=== PATIENT | female | born 1985 ===

== ENCOUNTER 2018-01-24 18:48 | Emergency (ER) | payer MEDICAID ==
[2018-01-24 19:30] VITALS: BMI 32.5
[2018-01-24 19:34] VITALS: RESP 18; O2SAT 99
--- NOTE | 2018-01-24 20:02 | ED PDOC ---
Arrival/HPI - General Chief Complaint: Back Pain Time Seen by Provider: 01/24/18 19:52 Historian: Patient - History of Present Illness Narrative History of Present Illness (Text): 01/24/18 19:48 Slime Goldman is a 32 year old female, whose past medical history includes kidney stones, who presents to the ED complaining of dysuria since earlier today. Patient reports associated right flank pain radiating to lower abdomen. Patient notes symptoms are similar in quality to previous episode of renal colic 3 years ago. Patient denies any fever, chills, nausea, vomiting, diarrhea, headache, dizziness, or any other complaints. Symptom Onset: Gradual Symptom Course: Unchanged Activities at Onset: Light Context: Home Past Medical History - Provider Review Nursing Documentation Reviewed: Yes - Infectious Disease Hx of Infectious Diseases: None - Renal Hx Kidney Stones: Yes - Musculoskeletal/Rheumatological Hx Arthritis: Yes - Gastrointestinal Hx Gastritis: Yes - Psychiatric Hx Depression: No Hx Substance Use: No - Surgical History Hx Cholecystectomy: Yes - Anesthesia Hx Anesthesia Reactions: No Hx Malignant Hyperthermia: No - Suicidal Assessment Feels Threatened In Home Enviroment: No Family/Social History - Physician Review Nursing Documentation Reviewed: Yes Family/Social History: Unknown Family HX Smoking Status: Never Smoked Hx Alcohol Use: No Hx Substance Use: No Hx Substance Use Treatment: No Allergies/Home Meds Allergies/Adverse Reactions: Allergies No Known Allergies Allergy (Verified 02/26/12 21:22) Review of Systems - Physician Review All systems were reviewed & negative as marked: Yes - Review of Systems Constitutional: Normal. absent: Fevers Eyes: Normal ENT: Normal Respiratory: Normal. absent: SOB, Cough Cardiovascular: Normal. absent: Chest Pain Gastrointestinal: Abdominal Pain. absent: Diarrhea, Nausea, Vomiting Genitourinary Female: Dysuria. absent: Frequency, Hematuria Musculoskeletal: Back Pain. absent: Neck Pain Skin: Normal. absent: Rash Neurological: Normal. absent: Headache, Dizziness Endocrine: Normal Hemo/Lymphatic: Normal Psychiatric: Normal Physical Exam Vital Signs Reviewed: Yes Vital Signs Temp Pulse Resp BP Pulse Ox 01/24/18 18:48 99.2 F 84 18 110/69 99 Temperature: Afebrile Blood Pressure: Normal Pulse: Regular Respiratory Rate: Normal Appearance: Positive for: Well-Appearing, Non-Toxic, Comfortable Pain Distress: None Mental Status: Positive for: Alert and Oriented X 3 - Systems Exam Head: Present: Atraumatic, Normocephalic Pupils: Present: PERRL Extroacular Muscles: Present: EOMI Conjunctiva: Present: Normal Mouth: Present: Moist Mucous Membranes Neck: Present: Normal Range of Motion Respiratory/Chest: Present: Clear to Auscultation, Good Air Exchange. No: Respiratory Distress, Accessory Muscle Use Cardiovascular: Present: Regular Rate and Rhythm, Normal S1, S2. No: Murmurs Abdomen: No: Tenderness, Distention, Peritoneal Signs Back: Present: Normal Inspection Upper Extremity: Present: Normal Inspection. No: Cyanosis, Edema Lower Extremity: Present: Normal Inspection. No: Edema Neurological: Present: GCS=15, CN II-XII Intact, Speech Normal Skin: Present: Warm, Dry, Normal Color. No: Rashes Psychiatric: Present: Alert, Oriented x 3, Normal Insight, Normal Concentration Medical Decision Making ED Course and Treatment: 01/24/18 19:48 Impression: 32 year old female c/o dysuria and left flank pain radiating to lower abdomen since earlier today. Plan: -- CT Abdomen and Pelvis w/o contrast -- US Renal -- Labs -- UA, urine cultures -- IV fluids -- Toradol -- Reassess and disposition Prior Visits: Notes and results from previous visits were reviewed. Progress Notes: 01/24/18 22:01 US Renal Impression: Right hydronephrosis. Consider follow-up with CT. Electronically signed on Jan 24, 2018 21:16:19 EDT by: Blake Coffey M.D, 01/24/18 23:36 CT Abdomen and Pelvis Impression: 1. s/p cholecystectomy 2. 2mm calculus is noted at the right UVJ producing mild hydroureteronephrosis. Electronically signed on Jan 24, 2018 23:22:42 EDT by: Blake Coffey M.D. On reassessment, pt is awake, alert, and in no acute distress. Discussed results and plan with patient. Patient understands results and is agreeable with plan. All questions answered. - Lab Interpretations I have reviewed the lab results: Yes - RAD Interpretation Pattern Drafter: Radiologist - Scribe Statement The provider has reviewed the documentation as recorded by the Scribe Candice Sheets All medical record entries made by the Scribe were at my direction and personally dictated by me. I have reviewed the chart and agree that the record accurately reflects my personal performance of the history, physical exam, medical decision making, and the department course for this patient. I have also personally directed, reviewed, and agree with the discharge instructions and disposition. Disposition/Present on Arrival - Present on Arrival Any Indicators Present on Arrival: No History of DVT/PE: No History of Uncontrolled Diabetes: No Urinary Catheter: No History of Decub. Ulcer: No History Surgical Site Infection Following: None - Disposition Have Diagnosis and Disposition been Completed?: Yes Diagnosis: Renal colic Disposition: HOME/ ROUTINE Disposition Time: 00:27 Patient Plan: Discharge Condition: GOOD Discharge Instructions (ExitCare): Renal Colic (DC) Additional Instructions: Drink plenty of liquids/medication as prescribed/follow up with your doctor Prescriptions: Naproxen [Naprosyn] 500 mg PO BID PRN #12 tab PRN Reason: Pain Referrals: Chuck Downs MD [Primary Care Provider] - Follow up with primary John Solorzano MD [Staff Provider] - Follow up with primary Forms: [employer] ([place])
[2018-01-24] MEDS ORDERED: Sodium Chloride 0.9% 1,000 ML IV STA (20:07)
[2018-01-24 20:09] LABS: URINE BILIRUBIN NEGATIVE (NEGATIVE); URINE BLOOD LARGE (NEGATIVE); URINE GLUCOSE (UA) NEGATIVE (NEGATIVE); URINE LEUKOCYTE ESTERASE NEGATIVE Leu/uL (NEGATIVE); URINE PROTEIN 100 mg/dL (<30 mg/dL)
[2018-01-24 20:10] LABS: URINE COLOR LIGHT YELLOW (YELLOW)
[2018-01-24 20:11] LABS: URINE APPEARANCE CLEAR (CLEAR)
[2018-01-24 20:23] LABS: URINE BACTERIA NEG (NEG); URINE WBC NEGATIVE /hpf (0-6)
[2018-01-24 21:33] LABS: HEMOGLOBIN 12.9 g/dL (12.0-16.0); MEAN CELL VOLUME 86.7 fl (80.0-105.0); MEAN CORPUSCULAR HEMOGLOBIN 28.6 pg (25.0-35.0); RBC 4.51 10^6/uL (3.5-6.1); RED CELL DISTRIBUTION WIDTH 13.3 % (11.5-14.5)
[2018-01-24 21:40] LABS: ALB/GLOB RATIO 1.4 (1.1-1.8); ALBUMIN 4.3 g/dL (3.0-4.8); ALT/SGPT 24 U/L (7-56); AST/SGOT 20 U/L (14-36); BLOOD UREA NITROGEN 13 mg/dL (7-21); CALCIUM 9.3 mg/dL (8.4-10.5); GFR NON-AFRICAN AMERICAN > 60
[2018-01-25 00:43] VITALS: BP 115/75; PULSE 86; TEMP 98
--- NOTE | 2018-01-25 08:35 | CT ---
Date of service: 01/24/2018 PROCEDURE: CT Abdomen and Pelvis without intravenous contrast HISTORY: Right flank pain COMPARISON: None. TECHNIQUE: Unenhanced. Neither IV nor oral contrast administered Radiation dose: Total exam DLP = 631.79 mGy-cm. This CT exam was performed using one or more of the following dose reduction techniques: Automated exposure control, adjustment of the mA and/or kV according to patient size, and/or use of iterative reconstruction technique. FINDINGS: LOWER THORAX: Unremarkable. LIVER: Unremarkable. No gross lesion or ductal dilatation. GALLBLADDER AND BILE DUCTS: Status post cholecystectomy. No abnormality is seen in the gallbladder fossa. PANCREAS: Unremarkable. No gross lesion or ductal dilatation. SPLEEN: Unremarkable. ADRENALS: Unremarkable. No mass. KIDNEYS AND URETERS: Unilateral, right obstructive uropathy related to 3 mm calculus within 1.5 cm of the right ureterovesical junction. No upper tract calculi identified. Unremarkable left kidney in ureter. VASCULATURE: Unremarkable. No aortic aneurysm. BOWEL: Unremarkable. No obstruction. No gross mural thickening. APPENDIX: Unremarkable. Normal appendix. PERITONEUM: Unremarkable. No free fluid. No free air. LYMPH NODES: Unremarkable. No enlarged lymph nodes. BLADDER: Unremarkable. REPRODUCTIVE: Unremarkable. BONES: No acute fracture. OTHER FINDINGS: None. IMPRESSION: Unilateral, right obstructive uropathy related to distal 3 mm calculus. Concordant results (preliminary interpretation) provided by [employer]. Procedure Completed: 22:40 Preliminary Report: Dictated and Authenticated: 23:22. Final Interpretation: 08:33. January 25, 2018
--- NOTE | 2018-01-25 08:41 | US ---
Date of service: 01/24/2018 PROCEDURE: Ultrasound of the Kidneys HISTORY: flank pain COMPARISON: January 24, 2018 CT abdomen and pelvis. TECHNIQUE: Sonogram of the kidneys. FINDINGS: RIGHT KIDNEY: Measures: 5.3 x 5.6 x 11.2 cm. Normal in size, contour and echogenicity. Moderate hydronephrosis, a finding confirmed on concurrent CT scan. LEFT KIDNEY: Measures: 5.2 x 5.8 x 10.5 cm. Normal in size, contour and echogenicity. No stone, solid mass lesion or hydronephrosis visualized. OTHER FINDINGS: None. IMPRESSION: Moderate unilateral, right hydronephrosis. Concordant results (preliminary interpretation) provided by KANDIS MERRITT. Procedure Completed: 20:30 Preliminary Report: Dictated and Authenticated: 21:16 Final Interpretation: 08:40. January 25, 2018
== END 2018-01-25 00:43 | disposition home or self-care (01) ==
LOC: ED 18:48
DX: N23 Unspecified renal colic (principal); Z87.442 Personal history of urinary calculi
CPT/HCPCS: 74176; 76770; 80053; 81001; 85027; 87086; 96374; 99285; J1885; J7030

== ENCOUNTER 2018-01-26 13:56 | Observation (INO) | payer MEDICAID ==
[2018-01-26 15:06] LABS: BASO # 0.01 K/mm3 (0.0-2.0); BASO % 0.1 % (0.0-3.0); EOS % 0.4 % (1.5-5.0); GRAN # 8.15 (1.4-6.5); GRAN % 80.7 % (50.0-68.0); LYMPH # 1.4 (1.2-3.4); LYMPH % 13.6 % (22.0-35.0); MEAN CELL VOLUME 86.1 fl (80.0-105.0); MEAN CORPUSCULAR HEMOGLOBIN 28.6 pg (25.0-35.0); MEAN CORPUSCULAR HGB CONC 33.2 g/dl (31.0-37.0); MEAN PLATELET VOLUME 11.7 fl (7.0-11.0); MONO # 0.5 (0.1-0.6); MONO % 5.2 % (1.0-6.0); RBC 4.54 10^6/uL (3.5-6.1); RED CELL DISTRIBUTION WIDTH 13.3 % (11.5-14.5); WHITE BLOOD COUNT 10.1 10^3/ul (4.5-11.0)
[2018-01-26 15:10] LABS: PH,URINE 6.5 (4.7-8.0); URINE BILIRUBIN SMALL (NEGATIVE); URINE BLOOD LARGE (NEGATIVE); URINE GLUCOSE (UA) NEGATIVE (NEGATIVE); URINE LEUKOCYTE ESTERASE MODERATE Leu/uL (NEGATIVE); URINE PROTEIN 30 mg/dL (<30 mg/dL); URINE UROBILINOGEN >=8.0 E.U./dL (<1 E.U./dL)
[2018-01-26 15:11] LABS: URINE APPEARANCE SLIGHT-CLOUDY (CLEAR); URINE COLOR DARK YELLOW (YELLOW)
[2018-01-26 15:21] LABS: URINE BACTERIA SMALL (NEG); URINE CALCIUM OXALATE CRYSTALS SMALL /hpf
[2018-01-26 15:23] LABS: ALB/GLOB RATIO 1.4 (1.1-1.8); ALBUMIN 3.8 g/dL (3.0-4.8); ALT/SGPT 400 U/L (7-56); AST/SGOT 398 U/L (14-36); BLOOD UREA NITROGEN 13 mg/dL (7-21); CALCIUM 9.2 mg/dL (8.4-10.5); GFR NON-AFRICAN AMERICAN > 60
[2018-01-26] MEDS ORDERED: Sodium Chloride 0.9% 1,000 ML IV STA (15:30)
--- NOTE | 2018-01-26 16:18 | RAD ---
Date of service: 01/26/2018 HISTORY: abd pain, right sided, hx of 3mm stone at UVJ COMPARISON: 01/24/2018 FINDINGS: BOWEL: Normal. No obstruction. No free air. BONES: Normal. OTHER FINDINGS: The stone seen on CT at the right UVJ is visible on plain film IMPRESSION: As above
--- NOTE | 2018-01-26 17:19 | US ---
HISTORY: right sided abdominal pain, hx of stones, high lft COMPARISON: CT abdomen pelvis without contrast performed 01/24/18, renal ultrasound performed 01/24/18 TECHNIQUE: Sonographic evaluation of the abdomen. FINDINGS: LIVER: Measures 13.8 cm in sagittal dimension. Echogenic liver may be seen in setting of hepatic parenchymal disease or fatty infiltration. No focal hepatic mass identified. The main portal vein appears patent with normal directional flow. No intrahepatic bile duct dilatation. GALLBLADDER: Cholecystectomy. COMMON BILE DUCT: Measures 4 mm. PANCREAS: Not well visualized. RIGHT KIDNEY: Measures 11.2 x 5.6 x 5.7 cm. Moderate hydronephrosis. No obstructing calculus identified. LEFT KIDNEY: Measures 11.2 x 4.7 x 5.8 cm. No obstructing calculus or hydronephrosis identified. SPLEEN: Measures approximately 0.5 cm. AORTA: Limited views appear unremarkable. IVC: Limited views appear unremarkable. OTHER FINDINGS: None. IMPRESSION: Moderate right-sided hydronephrosis. Echogenic liver may be seen in setting of hepatic parenchymal disease or fatty infiltration.
[2018-01-26] MEDS ORDERED: Morphine 4 mg/ml ISec IVP STA (17:30)
--- NOTE | 2018-01-26 17:39 | ED PDOC ---
Arrival/HPI - General Chief Complaint: Female Genitourinary Time Seen by Provider: 01/26/18 14:13 Historian: Patient - History of Present Illness Narrative History of Present Illness (Text): 01/26/18 14:15 32 year old female, with past medical history of nephrolithiasis, presents to the Emergency department complaining of right lower quadrant abdominal pain since 2 days. Patient states she was recently seen in the Emergency department 2 days ago for similar complaints and was diagnosed with kidney stones with instructions to follow-up with her PMD. Patient informs following up with her PMD and was given Tylenol with codeine with no improvement to symptoms. Patient states she still has the same severe sharp stabbing right lower quadrant pain now associated with nausea and vomiting. Patient c/o slight right sided back pa in. Denies urinary symptoms. Patient denies any fever, chills, diarrhea, abdominal pain, chest pain, shortness of breath, neck pain, headache, dizziness or any other complaints. Time/Duration: < week (2 days) Symptom Onset: Gradual Symptom Course: Unchanged Quality: Stabbing Activities at Onset: Light Context: Home Past Medical History - Provider Review Nursing Documentation Reviewed: Yes - Infectious Disease Hx of Infectious Diseases: None - Cardiac Hx Cardiac Disorders: No - Pulmonary Hx Respiratory Disorders: No - Neurological Hx Neurological Disorder: No - HEENT Hx HEENT Disorder: No - Renal Hx Renal Disorder: Yes Hx Kidney Stones: Yes - Endocrine/Metabolic Hx Endocrine Disorders: No - Hematological/Oncological Hx Blood Disorders: No - Integumentary Hx Dermatological Disorder: No - Musculoskeletal/Rheumatological Hx Musculoskeletal Disorders: Yes Hx Arthritis: Yes - Gastrointestinal Hx Gastrointestinal Disorders: Yes Hx Gall Bladder Disease: Yes Hx Gastritis: Yes - Genitourinary/Gynecological Hx Genitourinary Disorders: No - Psychiatric Hx Psychophysiologic Disorder: No Hx Substance Use: No - Surgical History Hx Cholecystectomy: Yes - Anesthesia Hx Anesthesia Reactions: No Hx Malignant Hyperthermia: No - Suicidal Assessment Feels Threatened In Home Enviroment: No Family/Social History - Physician Review Nursing Documentation Reviewed: Yes Family/Social History: No Known Family HX Smoking Status: Never Smoked Hx Alcohol Use: No Hx Substance Use: No Hx Substance Use Treatment: No Allergies/Home Meds Allergies/Adverse Reactions: Allergies No Known Allergies Allergy (Verified 01/26/18 13:59) Home Medications: Home Meds Medication Instructions Recorded Confirmed Acetaminophen with Codeine 1 tab PO TID PRN 01/26/18 01/26/18 [Tylenol with Codeine #3 Tablet] Review of Systems - Physician Review All systems were reviewed & negative as marked: Yes - Review of Systems Constitutional: absent: Fevers Respiratory: absent: SOB, Cough Cardiovascular: absent: Chest Pain, Palpitations Gastrointestinal: Abdominal Pain (right lower quadrant pain), Nausea, Vomiting. absent: Constipation, Diarrhea Genitourinary Female: absent: Urine Output Changes Musculoskeletal: Back Pain. absent: Neck Pain Neurological: absent: Headache, Dizziness Psychiatric: absent: Anxiety, Depression Physical Exam Vital Signs Reviewed: Yes Vital Signs Temp Pulse Resp BP Pulse Ox 01/26/18 14:00 98.7 F 84 17 122/72 98 Temperature: Afebrile Blood Pressure: Normal Pulse: Regular Respiratory Rate: Normal Appearance: Positive for: Well-Appearing, Non-Toxic, Uncomfortable Pain Distress: Mild Mental Status: Positive for: Alert and Oriented X 3 - Systems Exam Head: Present: Atraumatic Conjunctiva: Present: Normal Mouth: Present: Moist Mucous Membranes Neck: Present: Normal Range of Motion Respiratory/Chest: Present: Clear to Auscultation, Good Air Exchange. No: Respiratory Distress, Accessory Muscle Use Cardiovascular: Present: Regular Rate and Rhythm, Normal S1, S2. No: Murmurs Abdomen: Present: Tenderness (right lower quadrant abdominal tenderness and right flank tenderness.). No: Distention, Peritoneal Signs Back: Present: Normal Inspection Upper Extremity: Present: Normal Inspection, Edema Lower Extremity: Present: Normal Inspection Neurological: Present: GCS=15 Skin: Present: Warm, Dry, Normal Color. No: Rashes Psychiatric: Present: Alert, Oriented x 3 Medical Decision Making ED Course and Treatment: 01/26/18 14:15 Impression: 32 year old female presents to the Emergency department complaining of right lower quadrant abdominal pain associated with nausea and vomiting. Differential Diagnosis included but are not limited to: Nephrolithiasis Plan: -- Labs -- Morphine -- IV fluids -- Toradol -- Zofran -- Urine Culture -- X-ray of Abdomen -- US of Abdomen -- Reassess and disposition Prior Visits: Notes and results from previous visits were reviewed. Progress Notes: Patient vomiting in the emergency room. Zofran was given. Toradol was given for pain without improvement. Morphine was added. A flat plate of the x-rays revealed a 3 mm stone at the right UVJ Ultrasound of the abdomen:FINDINGS: LIVER: Measures 13.8 cm in sagittal dimension. Echogenic liver may be seen in setting of hepatic parenchymal disease or fatty infiltration. No focal hepatic mass identified. The main portal vein appears patent with normal directional flow. No intrahepatic bile duct dilatation. GALLBLADDER: Cholecystectomy. COMMON BILE DUCT: Measures 4 mm. PANCREAS: Not well visualized. RIGHT KIDNEY: Measures 11.2 x 5.6 x 5.7 cm. Moderate hydronephrosis. No obstructing calculus identified. LEFT KIDNEY: Measures 11.2 x 4.7 x 5.8 cm. No obstructing calculus or hydronephrosis identif ied. SPLEEN: Measures approximately 0.5 cm. AORTA: Limited views appear unremarkable. IVC: Limited views appear unremarkable. OTHER FINDINGS: None. IMPRESSION: Moderate right-sided hydronephrosis. Echogenic liver may be seen in setting of hepatic parenchymal disease or fatty infiltration. Patient was found to have sudden increase in AST and ALT. Patient states she does not take Tylenol at home but states yesterday she took one Tylenol with codeine and again today she took one Tylenol with codeine. We will check a Tylenol level. Tylenol level is less than 10 Patient reassessment still complaining of pain to the right side of the abdomen. Ultrasound showed a right sided hydronephrosis patient was found to have a urinary tract infection and started on Levaquin IV. Case was discussed with Dr. HOWARD who accepts observational status admission to the [facility] floor for intractable abdominal pain nephrolithiasis hydronephrosis and urinary tract infection with elevated LFTs. We will consult urology. Patient remains afebrile in the emergency room. Impression: Abdominal pain, nephrolithiasis, hydronephrosis, urinary tract infection, elevated LFTs Admit observational status to [facility] - Lab Interpretations Lab Results: 01/26/18 14:50 01/26/18 14:50 Lab Results 01/26/18 14:50: Lipase 27 01/26/18 14:50: Urine Color Dark yellow, Urine Appearance Slight-cloudy, Urine pH 6.5, Ur Specific [place] 1.025, Urine Protein 30 H, Urine Glucose (UA) Negative, Urine Ketones Trace H, Urine Blood Large H, Urine Nitrate Negative, Urine Bilirubin Small H, Urine Urobilinogen >=8.0, Ur Leukocyte Esterase Moderate H, Urine RBC 2 - 5, Urine WBC 2 - 5, Ur Epithelial Cells 6 - 8, Calcium Oxalate Crystal Small, Urine Bacteria Small 01/26/18 14:50: WBC 10.1 D, RBC 4.54, Hgb 13.0, Hct 39.1, MCV 86.1, MCH 28.6, MCHC 33.2, RDW 13.3, Plt Count 187, MPV 11.7 H, Gran % 80.7 H, Lymph % (Auto) 13.6 L, [place] % (Auto) 5.2, Eos % (Auto) 0.4 L, Baso % (Auto) 0.1, Gran # 8.15 H, Lymph # (Auto) 1.4, [place] # (Auto) 0.5, Eos # (Auto) 0.0, Baso # (Auto) 0.01 01/26/18 14:50: Sodium 141, Potassium 4.0, Chloride 106, Carbon Dioxide 27, Anion Gap 11, BUN 13, Creatinine 0.9, Est GFR ( Amer) > 60, Est GFR (Non- Af Amer) > 60, Random Glucose 93, Calcium 9.2, Total Bilirubin 1.1, AST 398 H D, ALT 400 H, Alkaline Phosphatase 70, Total Protein 6.7, Albumin 3.8, Globulin 2.8, Albumin/Globulin Ratio 1.4 - RAD Interpretation Radiology Orders: 01/26/18 15:10 ABDOMEN (FLAT PLATE) 1VIEW [RAD] Stat 01/26/18 15:30 ABDOMEN COMPLETE [US] Stat - Medication Orders Current Medication Orders: Discontinued Medications Sodium Chloride (Sodium Chloride 0.9%) 1,000 mls @ 999 mls/hr IV .Q1H1M STA Stop: 01/26/18 16:30 Last Admin: 01/26/18 16:08 Dose: 999 mls/hr eMAR Start Stop Document 01/26/18 16:08 EQ (Rec: 01/26/18 16:08 EQ [id number]) Intravenous Solution Start Date 01/26/18 Start Time 16:08 Ketorolac Tromethamine (Toradol) 30 mg IVP STAT STA Stop: 01/26/18 15:31 Last Admin: 01/26/18 16:08 Dose: 30 mg MAR Pain Assessment Document 01/26/18 16:08 EQ (Rec: 01/26/18 16:08 EQ [id number]) Pain Reassessment Is this a pain reassessment? No Sleep Is patient sleeping during reassessment? No Presence of Pain Presence of Pain Yes IVP Administration Document 01/26/18 16:08 EQ (Rec: 01/26/18 16:08 EQ [id number]) Charges for Administration # of IVP Administrations 1 Morphine Sulfate (Morphine) 4 mg IVP STAT STA Stop: 01/26/18 17:31 Last Admin: 01/26/18 17:37 Dose: 4 mg MAR Pain Assessment Document 01/26/18 17:37 EQ (Rec: 01/26/18 17:37 EQ [id number]) Pain Reassessment Is this a pain reassessment? No Sleep Is patient sleeping during reassessment? No Presence of Pain Presence of Pain Yes IVP Administration Document 01/26/18 17:37 EQ (Rec: 01/26/18 17:37 EQ [id number]) Charges for Administration # of IVP Administrations 1 Ondansetron HCl (Zofran Inj) 4 mg IVP STAT STA Stop: 01/26/18 16:08 Last Admin: 01/26/18 16:09 Dose: 4 mg IVP Administration Document 01/26/18 16:09 EQ (Rec: 01/26/18 16:09 EQ [id number]) Charges for Administration # of IVP Administrations 1 - Scribe Statement The provider has reviewed the documentation as recorded by the Scribe Sivan Barrera. Provider Scribe Attestation: All medical record entries made by the Scribe were at my direction and perso jorje dictated by me. I have reviewed the chart and agree that the record accurately reflects my personal performance of the history, physical exam, medical decision making, and the department course for this patient. I have also personally directed, reviewed, and agree with the discharge instructions and disposition. Disposition/Present on Arrival - Present on Arrival Any Indicators Present on Arrival: No History of DVT/PE: No History of Uncontrolled Diabetes: No Urinary Catheter: No History of Decub. Ulcer: No History Surgical Site Infection Following: None - Disposition Have Diagnosis and Disposition been Completed?: Yes Diagnosis: Nephrolithiasis, Hydronephrosis, Elevated LFTs, Urinary tract infection, Intractable abdominal pain Disposition: HOSPITALIZED Disposition Time: 18:00 Patient Plan: Observation Condition: FAIR
[2018-01-26] MEDS ORDERED: cefTRIAXone 1 gm 1 GM/100 ML BAG IVPB STA (17:46)
[2018-01-26] MEDS ORDERED: levoFLOXacin 500 mg in D5W 500 MG/100 ML BAG IVPB STA (18:03)
--- NOTE | 2018-01-26 18:43 | CP.PCM.HP ---
History of Present Illness - History of Present Illness History of Present Illness: Williamolgashila Malcolmwilian PGY1 Progress Note for Dr. Munguia Pt is a 32yo F with PMH kidney stones and arthritis who presents to the ED complaining of right-sided abdominal pain for 3 days. She was seen in the ED 2 days prior for the same complaint, when she was found to have nephrolithiasis and given naprosyn upon discharge. She reports a sharp pain that is not alleviated by tylenol, which she reported taking two times. She reports associ ated nausea and vomiting, which has been green. The last episode of vomiting was 20 minutes prior. She denies any blood in the urine or dysuria. She also reports previous history of this two years prior, upon which she received intervention. Pt denies any fever, chills, chest pain, shortness of breath, diarrhea, constipation. SxH: cholecystectomy 2007 FamH: denies SocH: denies alcohol use, tobacco use, or recreational drug use Allergies: NKDA Meds: none PMD: Dr. Chuck Song Present on Admission - Present on Admission Any Indicators Present on Admission: No Review of Systems - Review of Systems Review of Systems: as per HPI Past Patient History - Infectious Disease Hx of Infectious Diseases: None - Past Social History Smoking Status: Never Smoked - CARDIAC Hx Cardiac Disorders: No - PULMONARY Hx Respiratory Disorders: No - NEUROLOGICAL Hx Neurological Disorder: No - HEENT Hx HEENT Problems: No - RENAL Hx Chronic Kidney Disease: Yes Hx Kidney Stones: Yes - ENDOCRINE/METABOLIC Hx Endocrine Disorders: No - HEMATOLOGICAL/ONCOLOGICAL Hx Blood Disorders: No - INTEGUMENTARY Hx Dermatological Problems: No - MUSCULOSKELETAL/RHEUMATOLOGICAL Hx Musculoskeletal Disorders: Yes Hx Arthritis: Yes - GASTROINTESTINAL Hx Gastrointestinal Disorders: Yes Hx Gall Bladder Disease: Yes Hx Gastritis: Yes - GENITOURINARY/GYNECOLOGICAL Hx Genitourinary Disorders: No - PSYCHIATRIC Hx Psychophysiologic Disorder: No Hx Substance Use: No - SURGICAL HISTORY Hx Cholecystectomy: Yes - ANESTHESIA Hx Anesthesia Reactions: No Hx Malignant Hyperthermia: No Meds Allergies/Adverse Reactions: Allergies Allergy/AdvReac Type Severity Reaction Status Date / Time No Known Allergies Allergy Verified 01/26/18 13:59 Physical Exam - Constitutional Appears: In Acute Distress - Head Exam Head Exam: ATRAUMATIC, NORMOCEPHALIC - Eye Exam Eye Exam: EOMI, Normal appearance, PERRL Pupil Exam: NORMAL ACCOMODATION - ENT Exam ENT Exam: Mucous Membranes Moist, Normal Exam - Neck Exam Neck exam: Positive for: Normal Inspection - Respiratory Exam Respiratory Exam: Clear to Auscultation Bilateral, NORMAL BREATHING PATTERN. absent: Rales, Rhonchi, Wheezes, Stridor - Cardiovascular Exam Cardiovascular Exam: REGULAR RHYTHM, +S1, +S2. absent: Gallop, Rubs, Systolic Murmur - GI/Abdominal Exam GI & Abdominal Exam: Normal Bowel Sounds, Soft, Tenderness. absent: Distended, Firm, Guarding, Rebound Additional comments: tenderness to palpation of right lower quadrant - Exam Additional comments: no suprapubic tenderness - Extremities Exam Extremities exam: Positive for: normal inspection. Negative for: pedal edema - Back Exam Back exam: absent: CVA tenderness (L), CVA tenderness (R) - Neurological Exam Neurological exam: Alert, Oriented x3 - Psychiatric Exam Psychiatric exam: Normal Affect, Normal Mood Results - Vital Signs Recent Vital Signs: Last Vital Signs Temp 98.7 F 01/26/18 14:00 Pulse 60 01/26/18 17:44 Resp 20 01/26/18 17:44 BP 128/73 01/26/18 17:44 Pulse Ox 100 01/26/18 17:44 - Labs Result Diagrams: 01/26/18 14:50 01/26/18 14:50 Labs: Laboratory Results - last 24 hr 01/26/18 01/26/18 01/26/18 14:50 14:50 14:50 WBC 10.1 D RBC 4.54 Hgb 13.0 Hct 39.1 MCV 86.1 MCH 28.6 MCHC 33.2 RDW 13.3 Plt Count 187 MPV 11.7 H Gran % 80.7 H Lymph % (Auto) 13.6 L [place] % (Auto) 5.2 Eos % (Auto) 0.4 L Baso % (Auto) 0.1 Gran # 8.15 H Lymph # (Auto) 1.4 [place] # (Auto) 0.5 Eos # (Auto) 0.0 Baso # (Auto) 0.01 Sodium 141 Potassium 4.0 Chloride 106 Carbon Dioxide 27 Anion Gap 11 BUN 13 Creatinine 0.9 Est GFR ( Amer) > 60 Est GFR (Non-Af Amer) > 60 Random Glucose 93 Calcium 9.2 Total Bilirubin 1.1 AST 398 H D ALT 400 H Alkaline Phosphatase 70 Total Protein 6.7 Albumin 3.8 Globulin 2.8 Albumin/Globulin Ratio 1.4 Lipase Urine Color Dark yellow Urine Appearance Slight-cloudy Urine pH 6.5 Ur Specific [place] 1.025 Urine Protein 30 H Urine Glucose (UA) Negative Urine Ketones Trace H Urine Blood Large H Urine Nitrate Negative Urine Bilirubin Small H Urine Urobilinogen >=8.0 Ur Leukocyte Esterase Moderate H Urine RBC 2 - 5 Urine WBC 2 - 5 Ur Epithelial Cells 6 - 8 Calcium Oxalate Crystal Small Urine Bacteria Small 01/26/18 14:50 WBC RBC Hgb Hct MCV MCH MCHC RDW Plt Count MPV Gran % Lymph % (Auto) [place] % (Auto) Eos % (Auto) Baso % (Auto) Gran # Lymph # (Auto) [place] # (Auto) Eos # (Auto) Baso # (Auto) Sodium Potassium Chloride Carbon Dioxide Anion Gap BUN Creatinine Est GFR ( Amer) Est GFR (Non-Af Amer) Random Glucose Calcium Total Bilirubin AST ALT Alkaline Phosphatase Total Protein Albumin Globulin Albumin/Globulin Ratio Lipase 27 Urine Color Urine Appearance Urine pH Ur Specific [place] Urine Protein Urine Glucose (UA) Urine Ketones Urine Blood Urine Nitrate Urine Bilirubin Urine Urobilinogen Ur Leukocyte Esterase Urine RBC Urine WBC Ur Epithelial Cells Calcium Oxalate Crystal Urine Bacteria Assessment & Plan - Assessment and Plan (Free Text) Assessment: 32yo F PMH nephrolithiasis, arthritis presents to ED with R lower quadrant pain, admitted for hydronephrosis secondary to nephrolithiasis. Plan: Hydronephrosis - pt with R lower quadrant pain, nausea and vomiting - Abd US: R sided hydronephrosis, echogenic liver - Abd XR: 3mm stone in R UVJ - UA: moderate leukocyte esterase, large blood - zofran 4 q6h PRN - ibuprofen 400 q8h PRN - toradol 30 q6h PRN - levaquin 500 BID - flomax 0.4 HS - NS @125 - f/u uric acid levels - f/u PTH - f/u BCx, UCx - f/u EKG - f/u UPT Transaminitis - AST 398, ALT 400 - lipase 27 - pt denies previous history or alcohol use - f/u acetaminophen level - f/u amylase - f/u hepatitis panel - f/u HIV PPx - DVT: SCDs - HHD Case reviewed with Dr. Davenport
[2018-01-26] MEDS: Sodium Chloride 0.9% 1,000 ML IV SCH (18:54)
[2018-01-26 19:22] LABS: URIC ACID 4.2 mg/dL (2.5-6.2)
[2018-01-26 22:37] VITALS: BMI 32.4
[2018-01-26] MEDS ORDERED: Influenza Vaccine 60 mcg/0.5 mL SYR (4YR UP) IM ONE (22:37)
[2018-01-27] MEDS ORDERED: levoFLOXacin 500 mg in D5W 500 MG/100 ML BAG IVPB STA (05:43)
[2018-01-27 06:22] LABS: EOS # 0.1 (0.0-0.7); EOS % 0.5 % (1.5-5.0); GRAN # 7.52 (1.4-6.5); GRAN % 69.5 % (50.0-68.0); HEMOGLOBIN 11.6 g/dL (12.0-16.0); LYMPH # 2.4 (1.2-3.4); LYMPH % 22.2 % (22.0-35.0); MEAN CELL VOLUME 85.9 fl (80.0-105.0); MEAN CORPUSCULAR HEMOGLOBIN 27.8 pg (25.0-35.0); MEAN CORPUSCULAR HGB CONC 32.4 g/dl (31.0-37.0); MEAN PLATELET VOLUME 12.3 fl (7.0-11.0); MONO # 0.8 (0.1-0.6); MONO % 7.8 % (1.0-6.0); RBC 4.17 10^6/uL (3.5-6.1); RED CELL DISTRIBUTION WIDTH 13.2 % (11.5-14.5); WHITE BLOOD COUNT 10.8 10^3/ul (4.5-11.0)
[2018-01-27 07:12] LABS: ALB/GLOB RATIO 1.2 (1.1-1.8); ALBUMIN 3.3 g/dL (3.0-4.8); ALT/SGPT 244 U/L (7-56); AST/SGOT 105 U/L (14-36); BLOOD UREA NITROGEN 11 mg/dL (7-21); CALCIUM 8.4 mg/dL (8.4-10.5); GFR NON-AFRICAN AMERICAN 57
[2018-01-27 07:47] LABS: PHENCYCLIDINE, UR NEGATIVE (NEGATIVE)
[2018-01-27 07:50] LABS: BARBITURATES, UR NEGATIVE (NEGATIVE); BENZODIAZEPINES, UR NEGATIVE (NEGATIVE); OPIATES, UR POSITIVE (NEGATIVE)
[2018-01-27] MEDS: Sodium Chloride 0.9% 1,000 ML IV SCH ×2 (12:48→21:04)
[2018-01-27 12:56] LABS: HEPATITIS B SURFACE AG Negative (NEGATIVE)
[2018-01-27 13:02] LABS: HEPATITIS A IGM NEGATIVE (NEGATIVE); HEPATITIS B CORE AB NEGATIVE (NEGATIVE)
[2018-01-27 13:14] LABS: HEPATITIS C ANTIBODY NEGATIVE (NEGATIVE)
--- NOTE | 2018-01-27 13:46 | CP.PCM.CON ---
History of Present Illness - History of Present Illness History of Present Illness: Urology progress note for Dr. Solorzano Patient is a 32 year old female with PMH of kidney stones and arthritis presenting with right-sided abdominal pain for 3 days. She was seen in the ED 3 days ago for the same complaint, when she was found to have nephrolithiasis and given naprosyn upon discharge. She describes the pain to be sharp, non- radiating, located mostly in the right lower quadrant, and 8/10 in severity. She reports associated nausea and vomiting, she last vomited this morning. She denies hematuria or dysuria. She states that she had kidney stones 3 years ago and had lithotripsy. Patient denies any fever, chills, chest pain, shortness of breath, diarrhea, or constipation. Surgical Hx: cholecystectomy in 2007 Family Hx: patient states that kidney stones run in the family Soc Hx: denies alcohol, tobacco, or recreational drug use Allergies: NKDA Meds: none PMD: Dr. Downs Review of Systems - Review of Systems All systems: reviewed and no additional remarkable complaints except Past Patient History - Infectious Disease Hx of Infectious Diseases: None - Past Social History Smoking Status: Never Smoked - CARDIAC Hx Cardiac Disorders: No - PULMONARY Hx Respiratory Disorders: No - NEUROLOGICAL Hx Neurological Disorder: No - HEENT Hx HEENT Problems: No - RENAL Hx Chronic Kidney Disease: Yes Hx Kidney Stones: Yes - ENDOCRINE/METABOLIC Hx Endocrine Disorders: No - HEMATOLOGICAL/ONCOLOGICAL Hx Blood Disorders: No - INTEGUMENTARY Hx Dermatological Problems: No - MUSCULOSKELETAL/RHEUMATOLOGICAL Hx Musculoskeletal Disorders: Yes Hx Arthritis: Yes - GASTROINTESTINAL Hx Gastrointestinal Disorders: Yes Hx Gall Bladder Disease: Yes Hx Gastritis: Yes - GENITOURINARY/GYNECOLOGICAL Hx Genitourinary Disorders: No - PSYCHIATRIC Hx Psychophysiologic Disorder: No Hx Substance Use: No - SURGICAL HISTORY Hx Cholecystectomy: Yes - ANESTHESIA Hx Anesthesia Reactions: No Hx Malignant Hyperthermia: No Meds Allergies/Adverse Reactions: Allergies Allergy/AdvReac Type Severity Reaction Status Date / Time No Known Allergies Allergy Verified 01/26/18 13:59 - Medications Medications: Current Medications Sodium Chloride (Sodium Chloride 0.9%) 1,000 mls @ 125 mls/hr IV .Q8H NALINI Last Admin: 01/27/18 12:48 Dose: 125 mls/hr Levofloxacin/Dextrose (Levaquin 500mg) 500 mg in 100 mls @ 100 mls/hr IVPB DAILY NALINI; Protocol Ibuprofen (Motrin Tab) 400 mg PO Q8H PRN PRN Reason: Fever >100.4 F Morphine Sulfate (Morphine) 2 mg IVP Q4H PRN PRN Reason: Pain, severe (8-10) Ondansetron HCl (Zofran Inj) 4 mg IVP Q6 PRN PRN Reason: Nausea/Vomiting Last Admin: 01/27/18 08:05 Dose: 4 mg Tamsulosin HCl (Flomax) 0.4 mg PO HS NALINI Last Admin: 01/26/18 22:01 Dose: 0.4 mg Physical Exam - Constitutional Appears: Well, Non-toxic, No Acute Distress - Head Exam Head Exam: ATRAUMATIC, NORMOCEPHALIC - Eye Exam Eye Exam: Normal appearance - ENT Exam ENT Exam: Mucous Membranes Moist - Respiratory Exam Respiratory Exam: NORMAL BREATHING PATTERN. absent: Respiratory Distress - Cardiovascular Exam Cardiovascular Exam: RRR. absent: Tachycardia - GI/Abdominal Exam GI & Abdominal Exam: Soft, Tenderness (Tender to palpation in RLQ). absent: Distended, Firm, Guarding - Extremities Exam Extremities exam: Positive for: normal inspection. Negative for: calf tenderness, pedal edema - Back Exam Back exam: CVA tenderness (R). absent: CVA tenderness (L) - Neurological Exam Neurological exam: Alert, Oriented x3 - Psychiatric Exam Psychiatric exam: Normal Affect, Normal Mood - Skin Skin Exam: Dry, Intact, Normal Color, Warm Results - Vital Signs Recent Vital Signs: Last Vital Signs Temp 98.2 F 01/27/18 08:17 Pulse 80 01/27/18 08:17 Resp 20 01/27/18 08:17 BP 109/68 01/27/18 08:17 Pulse Ox 100 01/27/18 08:17 - Labs Result Diagrams: 01/27/18 06:00 01/27/18 06:00 Labs: Laboratory Results - last 24 hr 01/26/18 01/26/18 01/26/18 14:50 14:50 14:50 WBC 10.1 D RBC 4.54 Hgb 13.0 Hct 39.1 MCV 86.1 MCH 28.6 MCHC 33.2 RDW 13.3 Plt Count 187 MPV 11.7 H Gran % 80.7 H Lymph % (Auto) 13.6 L [place] % (Auto) 5.2 Eos % (Auto) 0.4 L Baso % (Auto) 0.1 Gran # 8.15 H Lymph # (Auto) 1.4 [place] # (Auto) 0.5 Eos # (Auto) 0.0 Baso # (Auto) 0.01 Sodium 141 Potassium 4.0 Chloride 106 Carbon Dioxide 27 Anion Gap 11 BUN 13 Creatinine 0.9 Est GFR ( Amer) > 60 Est GFR (Non-Af Amer) > 60 Random Glucose 93 Uric Acid Calcium 9.2 Phosphorus Magnesium Total Bilirubin 1.1 AST 398 H D ALT 400 H Alkaline Phosphatase 70 Total Protein 6.7 Albumin 3.8 Globulin 2.8 Albumin/Globulin Ratio 1.4 Amylase Lipase Urine Color Dark yellow Urine Appearance Slight-cloudy Urine pH 6.5 Ur Specific [place] 1.025 Urine Protein 30 H Urine Glucose (UA) Negative Urine Ketones Trace H Urine Blood Large H Urine Nitrate Negative Urine Bilirubin Small H Urine Urobilinogen >=8.0 Ur Leukocyte Esterase Moderate H Urine RBC 2 - 5 Urine WBC 2 - 5 Ur Epithelial Cells 6 - 8 Calcium Oxalate Crystal Small Urine Bacteria Small Urine Opiates Screen Urine Methadone Screen Acetaminophen Ur Barbiturates Screen Ur Phencyclidine Scrn Ur Amphetamines Screen U Benzodiazepines Scrn U Oth Cocaine Metabols U Cannabinoids Screen Hepatitis A IgM Ab Hep Bs Antigen Hep B Core IgM Ab Hepatitis C Antibody 01/26/18 01/26/18 01/26/18 14:50 14:50 14:50 WBC RBC Hgb Hct MCV MCH MCHC RDW Plt Count MPV Gran % Lymph % (Auto) [place] % (Auto) Eos % (Auto) Baso % (Auto) Gran # Lymph # (Auto) [place] # (Auto) Eos # (Auto) Baso # (Auto) Sodium Potassium Chloride Carbon Dioxide Anion Gap BUN Creatinine Est GFR ( Amer) Est GFR (Non-Af Amer) Random Glucose Uric Acid 4.2 Calcium Phosphorus Magnesium Total Bilirubin AST ALT Alkaline Phosphatase Total Protein Albumin Globulin Albumin/Globulin Ratio Amylase 54 Lipase 27 Urine Color Urine Appearance Urine pH Ur Specific [place] Urine Protein Urine Glucose (UA) Urine Ketones Urine Blood Urine Nitrate Urine Bilirubin Urine Urobilinogen Ur Leukocyte Esterase Urine RBC Urine WBC Ur Epithelial Cells Calcium Oxalate Crystal Urine Bacteria Urine Opiates Screen Urine Methadone Screen Acetaminophen < 10.0 L Ur Barbiturates Screen Ur Phencyclidine Scrn Ur Amphetamines Screen U Benzodiazepines Scrn U Oth Cocaine Metabols U Cannabinoids Screen Hepatitis A IgM Ab Hep Bs Antigen Hep B Core IgM Ab Hepatitis C Antibody 01/26/18 01/27/18 01/27/18 18:30 06:00 06:00 WBC 10.8 RBC 4.17 Hgb 11.6 L Hct 35.8 L MCV 85.9 MCH 27.8 MCHC 32.4 RDW 13.2 Plt Count 161 MPV 12.3 H Gran % 69.5 H Lymph % (Auto) 22.2 [place] % (Auto) 7.8 H Eos % (Auto) 0.5 L Baso % (Auto) 0.0 Gran # 7.52 H Lymph # (Auto) 2.4 [place] # (Auto) 0.8 H Eos # (Auto) 0.1 Baso # (Auto) 0.00 Sodium 138 Potassium 3.8 Chloride 108 H Carbon Dioxide 23 Anion Gap 10 BUN 11 Creatinine 1.1 Est GFR ( Amer) > 60 Est GFR (Non-Af Amer) 57 Random Glucose 84 Uric Acid Calcium 8.4 Phosphorus 3.7 Magnesium 1.8 Total Bilirubin 0.8 AST 105 H D ALT 244 H Alkaline Phosphatase 58 Total Protein 6.0 Albumin 3.3 Globulin 2.7 Albumin/Globulin Ratio 1.2 Amylase Lipase Urine Color Urine Appearance Urine pH Ur Specific [place] Urine Protein Urine Glucose (UA) Urine Ketones Urine Blood Urine Nitrate Urine Bilirubin Urine Urobilinogen Ur Leukocyte Esterase Urine RBC Urine WBC Ur Epithelial Cells Calcium Oxalate Crystal Urine Bacteria Urine Opiates Screen Urine Methadone Screen Acetaminophen Ur Barbiturates Screen Ur Phencyclidine Scrn Ur Amphetamines Screen U Benzodiazepines Scrn U Oth Cocaine Metabols U Cannabinoids Screen Hepatitis A IgM Ab Negative Hep Bs Antigen Negative Hep B Core IgM Ab Negative Hepatitis C Antibody Negative 01/27/18 07:13 WBC RBC Hgb Hct MCV MCH MCHC RDW Plt Count MPV Gran % Lymph % (Auto) [place] % (Auto) Eos % (Auto) Baso % (Auto) Gran # Lymph # (Auto) [place] # (Auto) Eos # (Auto) Baso # (Auto) Sodium Potassium Chloride Carbon Dioxide Anion Gap BUN Creatinine Est GFR ( Amer) Est GFR (Non-Af Amer) Random Glucose Uric Acid Calcium Phosphorus Magnesium Total Bilirubin AST ALT Alkaline Phosphatase Total Protein Albumin Globulin Albumin/Globulin Ratio Amylase Lipase Urine Color Urine Appearance Urine pH Ur Specific [place] Urine Protein Urine Glucose (UA) Urine Ketones Urine Blood Urine Nitrate Urine Bilirubin Urine Urobilinogen Ur Leukocyte Esterase Urine RBC Urine WBC Ur Epithelial Cells Calcium Oxalate Crystal Urine Bacteria Urine Opiates Screen Positive H Urine Methadone Screen Negative Acetaminophen Ur Barbiturates Screen Negative Ur Phencyclidine Scrn Negative Ur Amphetamines Screen Negative U Benzodiazepines Scrn Negative U Oth Cocaine Metabols Negative U Cannabinoids Screen Negative Hepatitis A IgM Ab Hep Bs Antigen Hep B Core IgM Ab Hepatitis C Antibody Assessment & Plan - Assessment and Plan (Free Text) Assessment: Patient is a 32 year old female presenting with RLQ abdominal pain. Abdominal ultrasound shows right-sided hydronephrosis. CT scan shows unilateral, right obstructive uropathy related to distal 3mm calculus. Plan: - NPO after midnight - Plan for surgery on Tuesday AM - Continue antibiotics - Continue IVF - Pain management - Antiemetics - Management as per primary team Case discussed with Dr. Rashad Dolan DO PGY-1
[2018-01-27] MEDS: Morphine 2 mg/ml ISec IVP PRN ×2 (15:46→21:04)
--- NOTE | 2018-01-27 16:32 | CP.PCM.PN ---
<Jhony Hernandez - Last Filed: 01/27/18 16:27> Subjective - Date & Time of Evaluation Date of Evaluation: 01/27/18 Time of Evaluation: 10:00 - Subjective Subjective: Jhony Hernandez, PGY-1 Progress Note for Hospitalist Service Patient seen and evaluated at bedside. Patient reports RLQ abdominal pain that has improved to a 8/10 from a 15/10 yesterday. Pt has urinated but denies hematuria. Pt has had nausea and admits to several episodes of green vomitus over night and this morning. She reports drinking small amount of water but then throwing it up. Pt denies fever, chills headache, chest pain, SOB, dysuria, hematuria, constipation, diarrhea. Objective - Vital Signs/Intake and Output Vital Signs (last 24 hours): Temp Pulse Resp BP Pulse Ox 98.5 F 72 18 116/72 98 01/27/18 14:00 01/27/18 14:00 01/27/18 14:00 01/27/18 14:00 01/27/18 14:00 Intake and Output: 01/27/18 01/27/18 06:59 18:59 Intake Total 1250 Balance 1250 - Medications Medications: Current Medications Sodium Chloride (Sodium Chloride 0.9%) 1,000 mls @ 125 mls/hr IV .Q8H NALINI Last Admin: 01/27/18 12:48 Dose: 125 mls/hr Levofloxacin/Dextrose (Levaquin 500mg) 500 mg in 100 mls @ 100 mls/hr IVPB DAILY NALINI; Protocol Ibuprofen (Motrin Tab) 400 mg PO Q8H PRN PRN Reason: Fever >100.4 F Morphine Sulfate (Morphine) 2 mg IVP Q4H PRN PRN Reason: Pain, severe (8-10) Last Admin: 01/27/18 15:46 Dose: 2 mg Ondansetron HCl (Zofran Inj) 4 mg IVP Q6 PRN PRN Reason: Nausea/Vomiting Last Admin: 01/27/18 08:05 Dose: 4 mg Tamsulosin HCl (Flomax) 0.4 mg PO HS NALINI Last Admin: 01/26/18 22:01 Dose: 0.4 mg - Labs Labs: 01/27/18 06:00 01/27/18 06:00 - Constitutional Appears: In Acute Distress - Head Exam Head Exam: ATRAUMATIC, NORMOCEPHALIC - Eye Exam Eye Exam: EOMI, Normal appearance, PERRL Pupil Exam: NORMAL ACCOMODATION - ENT Exam ENT Exam: Mucous Membranes Moist, Normal Exam - Neck Exam Neck exam: Positive for: Normal Inspection - Respiratory Exam Respiratory Exam: Clear to Auscultation Bilateral, NORMAL BREATHING PATTERN. absent: Rales, Rhonchi, Wheezes, Stridor - Cardiovascular Exam Cardiovascular Exam: REGULAR RHYTHM, +S1, +S2. absent: Gallop, Rubs, Systolic Murmur - GI/Abdominal Exam GI & Abdominal Exam: Normal Bowel Sounds, Soft, Tenderness. absent: Distended, Firm, Guarding, Rebound Additional comments: tenderness to palpation of right lower quadrant - Exam Additional comments: no suprapubic tenderness - Extremities Exam Extremities exam: Positive for: normal inspection. Negative for: pedal edema - Back Exam Back exam: Positive: CVA tenderness (R) ; absent: CVA tenderness (L) - Neurological Exam Neurological exam: Alert, Oriented x3 - Psychiatric Exam Psychiatric exam: Normal Affect, Normal Mood Assessment and Plan - Assessment and Plan (Free Text) Assessment: Assessment: Pt is a 33 yo female with PMH of rheumatoid arthritis presenting with 3mm kidney stone in the R ureter with hydronephrosis of right kidney and transaminitis. Plan: Kidney Stone - pt with lower right quadrent pain, nausea and vomiting x 4 days - Abd US: R sided hydronephrosis, ecohgenic liver - Abd XR: 3mm stone in R UVJ - CT abdomen/pelvis 01/24 showed unilateral right obstructive uropathy related to distal 3mm calculus - UA: moderate leukocyte esterase, large blood, small calcium oxolate crystal - Uric acid WNL (4.2) - Continue NS @ 125 - continue zofran 4 q6h PRN for nausea/vomiting - morphine 2mg IVP q4 PRN for pain - flomax 0.4 HS - continue levoquin 500 BID - f/u on blood cx - f/u on urine cx - f/u on PTH - urology consulted, Dr. Solorzano - recommending surgery. Pt will go for surgery tomorrow AM if stone does not pass spontaneously prior to then. - pt will be NPO after midnight. Transaminitis - improving - AST now 105 (yesterday 398), ALT now 244 (yesterday 400) - lipase 27 - acetaminophen level <10 - Hepatitis panel was negative - tox screen positive for opiates. - pt denies previous etoh use - f/u HIV screen - f/u AM CMP Opiates in Urine - from prescribed Percocet Patient seen, evaluated and plan discussed with Dr. Mcmahon, attending. Jhony Hernandez, PGY-1 <Estefanía Mcmahon - Last Filed: 01/28/18 18:47> Objective - Vital Signs/Intake and Output Vital Signs (last 24 hours): Temp Pulse Resp BP Pulse Ox 98.5 F 75 18 118/72 93 L 01/28/18 14:48 01/28/18 14:48 01/28/18 14:48 01/28/18 14:48 01/28/18 14:48 Intake and Output: 01/28/18 01/28/18 06:59 18:59 Intake Total 3000 Balance 3000 - Labs Labs: 01/28/18 05:00 01/28/18 05:00 PT 13.9 SECONDS (9.4-12.5) H 01/28/18 05:00 INR 1.20 01/28/18 05:00 APTT 34.0 Seconds (25.1-36.5) 01/28/18 05:00 Attending/Attestation - Attestation I have personally seen and examined this patient.: Yes I have fully participated in the care of the patient.: Yes I have reviewed all pertinent clinical information, including history, physical exam and plan: Yes Notes (Text): 01/28/18 18:47 Medical record note made by the resident after discussion with my direction and input after the patient was personally seen and examined by me. I have reviewed the chart and agree that the record accurately reflects by personal performance of the history, physical exam, data review, and medical decision-making, in the course for the patient. I have also personally directed the plan of care.
[2018-01-27] MEDS: levoFLOXacin 500 mg in D5W 500 MG/100 ML BAG IVPB SCH (21:04)
[2018-01-28] MEDS: Sodium Chloride 0.9% 1,000 ML IV SCH (06:07)
[2018-01-28] MEDS: Morphine 2 mg/ml ISec IVP PRN ×2 (06:08→13:16)
[2018-01-28 06:24] LABS: INR 1.2; PROTHROMBIN TIME 13.9 SECONDS (9.4-12.5)
[2018-01-28 06:27] LABS: BASO # 0.01 K/mm3 (0.0-2.0); BASO % 0.1 % (0.0-3.0); EOS # 0.1 (0.0-0.7); EOS % 1.3 % (1.5-5.0); GRAN # 4.47 (1.4-6.5); GRAN % 59.8 % (50.0-68.0); HEMOGLOBIN 11.6 g/dL (12.0-16.0); LYMPH # 2.4 (1.2-3.4); LYMPH % 32.4 % (22.0-35.0); MEAN CORPUSCULAR HGB CONC 32.6 g/dl (31.0-37.0); MEAN PLATELET VOLUME 11.9 fl (7.0-11.0); MONO # 0.5 (0.1-0.6); MONO % 6.4 % (1.0-6.0); RBC 4.14 10^6/uL (3.5-6.1); RED CELL DISTRIBUTION WIDTH 13.4 % (11.5-14.5); WHITE BLOOD COUNT 7.5 10^3/ul (4.5-11.0)
[2018-01-28 06:44] LABS: ALB/GLOB RATIO 1.2 (1.1-1.8); ALBUMIN 3.4 g/dL (3.0-4.8); ALT/SGPT 193 U/L (7-56); AST/SGOT 72 U/L (14-36); BLOOD UREA NITROGEN 11 mg/dL (7-21); CALCIUM 8.6 mg/dL (8.4-10.5); GFR NON-AFRICAN AMERICAN > 60
[2018-01-28] MEDS: levoFLOXacin 500 mg in D5W 500 MG/100 ML BAG IVPB SCH (09:49)
--- NOTE | 2018-01-28 11:03 | CP.PCM.PN ---
Subjective - Date & Time of Evaluation Date of Evaluation: 01/28/18 Time of Evaluation: 11:00 - Subjective Subjective: Urology Note This 32f was seen and examined this AM at bedside no acute events overnight. She reports that she is urinated frequently, no stones passed no hematurea or dysuria. No fevers chills chest pain nausea vomiting. No new complaints at this time. Objective - Vital Signs/Intake and Output Vital Signs (last 24 hours): Temp Pulse Resp BP Pulse Ox 98.4 F 67 20 101/57 L 99 01/28/18 08:09 01/28/18 08:09 01/28/18 08:09 01/28/18 08:09 01/28/18 08:09 Intake and Output: 01/28/18 01/28/18 06:59 18:59 Intake Total 3000 Balance 3000 - Medications Medications: Current Medications Sodium Chloride (Sodium Chloride 0.9%) 1,000 mls @ 125 mls/hr IV .Q8H NALINI Last Admin: 01/28/18 06:07 Dose: 125 mls/hr Levofloxacin/Dextrose (Levaquin 500mg) 500 mg in 100 mls @ 100 mls/hr IVPB DAILY NALINI; Protocol Last Admin: 01/28/18 09:49 Dose: 100 mls/hr Ibuprofen (Motrin Tab) 400 mg PO Q8H PRN PRN Reason: Fever >100.4 F Morphine Sulfate (Morphine) 2 mg IVP Q4H PRN PRN Reason: Pain, severe (8-10) Last Admin: 01/28/18 06:08 Dose: 2 mg Ondansetron HCl (Zofran Inj) 4 mg IVP Q6 PRN PRN Reason: Nausea/Vomiting Last Admin: 01/27/18 08:05 Dose: 4 mg Tamsulosin HCl (Flomax) 0.4 mg PO HS NALINI Last Admin: 01/27/18 21:04 Dose: 0.4 mg - Labs Labs: 01/28/18 05:00 01/28/18 05:00 PT 13.9 SECONDS (9.4-12.5) H 01/28/18 05:00 INR 1.20 01/28/18 05:00 APTT 34.0 Seconds (25.1-36.5) 01/28/18 05:00 - Constitutional Appears: Non-toxic, No Acute Distress - Head Exam Head Exam: ATRAUMATIC, NORMOCEPHALIC - Eye Exam Eye Exam: EOMI - Respiratory Exam Respiratory Exam: NORMAL BREATHING PATTERN - Cardiovascular Exam Cardiovascular Exam: +S1, +S2 - GI/Abdominal Exam GI & Abdominal Exam: Soft. absent: Distended, Firm, Guarding, Rigid, Tenderness - Neurological Exam Neurological Exam: Alert, Awake - Psychiatric Exam Psychiatric exam: Normal Affect, Normal Mood - Skin Skin Exam: Dry, Intact - Additional Findings Additional findings: right sided CVA tenderness Assessment and Plan - Assessment and Plan (Free Text) Assessment: 32 female with nephrolithiasis Clear for D/C with flomax and pain control with recommendations for generous hydration Return to ED if pain worsens, fevers, chills develop Discussed with Dr. Shari Dumont PGY3
--- NOTE | 2018-01-28 12:01 | CP.PCM.DIS ---
<LopesMurray - Last Filed: 01/28/18 12:09> Provider - Provider Date of Admission: 01/26/18 18:54 Attending physician: Estefanía Mcmahon MD Time Spent in preparation of Discharge (in minutes): 45 Diagnosis - Discharge Diagnosis (1) Nephrolithiasis Status: Acute Priority: Medium (2) Hydronephrosis Status: Acute Priority: Medium (3) Elevated LFTs Status: Chronic Priority: Medium (4) Renal colic Status: Acute Priority: Medium Hospital Course - Lab Results Lab Results: Micro Results 01/26/18 18:45 Blood Blood Culture - Preliminary NO GROWTH AFTER 24 HOURS 01/26/18 18:30 Blood Blood Culture - Preliminary NO GROWTH AFTER 24 HOURS 01/26/18 14:50 Urine Urine Culture - Final No Growth (<1,000 CFU/ML) Most Recent Lab Values WBC 7.5 10^3/ul (4.5-11.0) D 01/28/18 05:00 RBC 4.14 10^6/uL (3.5-6.1) 01/28/18 05:00 Hgb 11.6 g/dL (12.0-16.0) L 01/28/18 05:00 Hct 35.6 % (36.0-48.0) L 01/28/18 05:00 MCV 86.0 fl (80.0-105.0) 01/28/18 05:00 MCH 28.0 pg (25.0-35.0) 01/28/18 05:00 MCHC 32.6 g/dl (31.0-37.0) 01/28/18 05:00 RDW 13.4 % (11.5-14.5) 01/28/18 05:00 Plt Count 158 10^3/uL (120.0-450.0) 01/28/18 05:00 MPV 11.9 fl (7.0-11.0) H 01/28/18 05:00 Gran % 59.8 % (50.0-68.0) 01/28/18 05:00 Lymph % (Auto) 32.4 % (22.0-35.0) 01/28/18 05:00 Rowan % (Auto) 6.4 % (1.0-6.0) H 01/28/18 05:00 Eos % (Auto) 1.3 % (1.5-5.0) L 01/28/18 05:00 Baso % (Auto) 0.1 % (0.0-3.0) 01/28/18 05:00 Gran # 4.47 (1.4-6.5) 01/28/18 05:00 Lymph # (Auto) 2.4 (1.2-3.4) 01/28/18 05:00 Rowan # (Auto) 0.5 (0.1-0.6) 01/28/18 05:00 Eos # (Auto) 0.1 (0.0-0.7) 01/28/18 05:00 Baso # (Auto) 0.01 K/mm3 (0.0-2.0) 01/28/18 05:00 PT 13.9 SECONDS (9.4-12.5) H 01/28/18 05:00 INR 1.20 01/28/18 05:00 APTT 34.0 Seconds (25.1-36.5) 01/28/18 05:00 Sodium 139 mmol/L (132-148) 01/28/18 05:00 Potassium 4.0 mmol/L (3.6-5.0) 01/28/18 05:00 Chloride 110 mmol/L (98-107) H 01/28/18 05:00 Carbon Dioxide 22 mmol/L (21-33) 01/28/18 05:00 Anion Gap 11 (10-20) 01/28/18 05:00 BUN 11 mg/dL (7-21) 01/28/18 05:00 Creatinine 0.9 mg/dl (0.7-1.2) 01/28/18 05:00 Est GFR ( Amer) > 60 01/28/18 05:00 Est GFR (Non-Af Amer) > 60 01/28/18 05:00 Random Glucose 80 mg/dL (70-110) 01/28/18 05:00 Uric Acid 4.2 mg/dL (2.5-6.2) 01/26/18 14:50 Calcium 8.6 mg/dL (8.4-10.5) 01/28/18 05:00 Phosphorus 3.7 mg/dL (2.5-4.5) 01/27/18 06:00 Magnesium 1.8 mg/dL (1.7-2.2) 01/27/18 06:00 Total Bilirubin 0.8 mg/dL (0.2-1.3) 01/28/18 05:00 AST 72 U/L (14-36) H D 01/28/18 05:00 ALT 193 U/L (7-56) H 01/28/18 05:00 Alkaline Phosphatase 59 U/L (38-126) 01/28/18 05:00 Total Protein 6.3 g/dL (5.8-8.3) 01/28/18 05:00 Albumin 3.4 g/dL (3.0-4.8) 01/28/18 05:00 Globulin 2.9 gm/dL 01/28/18 05:00 Albumin/Globulin Ratio 1.2 (1.1-1.8) 01/28/18 05:00 Amylase 54 U/L (35-125) 01/26/18 14:50 Lipase 27 U/L (23-300) 01/26/18 14:50 Procalcitonin < 0.05 NG/ML (0.19-0.49) L 01/27/18 05:43 Urine Color Dark yellow (YELLOW) 01/26/18 14:50 Urine Appearance Slight-cloudy (CLEAR) 01/26/18 14:50 Urine pH 6.5 (4.7-8.0) 01/26/18 14:50 Ur Specific [place] 1.025 (1.005-1.035) 01/26/18 14:50 Urine Protein 30 mg/dL (<30 mg/dL) H 01/26/18 14:50 Urine Glucose (UA) Negative mg/dL (NEGATIVE) 01/26/18 14:50 Urine Ketones Trace mg/dL (NEGATIVE) H 01/26/18 14:50 Urine Blood Large (NEGATIVE) H 01/26/18 14:50 Urine Nitrate Negative (NEGATIVE) 01/26/18 14:50 Urine Bilirubin Small (NEGATIVE) H 01/26/18 14:50 Urine Urobilinogen >=8.0 E.U./dL (<1 E.U./dL) 01/26/18 14:50 Ur Leukocyte Esterase Moderate Purnima/uL (NEGATIVE) H 01/26/18 14:50 Urine RBC 2 - 5 /hpf (0-2) 01/26/18 14:50 Urine WBC 2 - 5 /hpf (0-6) 01/26/18 14:50 Ur Epithelial Cells 6 - 8 /hpf (0-5) 01/26/18 14:50 Calcium Oxalate Crystal Small /hpf 01/26/18 14:50 Urine Bacteria Small (NEG) 01/26/18 14:50 Urine Opiates Screen Positive (NEGATIVE) H 01/27/18 07:13 Urine Methadone Screen Negative (NEGATIVE) 01/27/18 07:13 Acetaminophen < 10.0 ug/ml (10.0-20.0) L 01/26/18 14:50 Ur Barbiturates Screen Negative (NEGATIVE) 01/27/18 07:13 Ur Phencyclidine Scrn Negative (NEGATIVE) 01/27/18 07:13 Ur Amphetamines Screen Negative (NEGATIVE) 01/27/18 07:13 U Benzodiazepines Scrn Negative (NEGATIVE) 01/27/18 07:13 U Oth Cocaine Metabols Negative (NEGATIVE) 01/27/18 07:13 U Cannabinoids Screen Negative (NEGATIVE) 01/27/18 07:13 Hepatitis A IgM Ab Negative (NEGATIVE) 01/26/18 18:30 Hep Bs Antigen Negative (NEGATIVE) 01/26/18 18:30 Hep B Core IgM Ab Negative (NEGATIVE) 01/26/18 18:30 Hepatitis C Antibody Negative (NEGATIVE) 01/26/18 18:30 HIV 1&2 Ag/Ab, 4th Gen Nonreactive (Nonreactive) 01/26/18 18:30 - Hospital Course Hospital Course: Patient is a 33 yo female with a past medical history of nephrolithiasis and rheumatoid arthritis who was admitted for evaluation and treatment of right sided abdominal/flank pain. With the use of physical examinations, lab work, and imaging the patient was diagnosed with and treated for nephrolithasis, hydronephrosis, and transaminitis. During their hospital stay the patient was seen by the urology team (Dr. Mccarthy) whose recommendations were both appreciated and utilized in the care for this patient. Urology recommended continuing flomax and hydration on an outpatient basis with no acute surgical intervention during this hospital stay. During their hospital stay the patient underwent abdominal xray and abdominal ultrasound which were reviewed, appreciated, and utilized in the management of the patients clinical course. The abdominal xray showed a 3mm stone at UVJ. The abdominal ultrasound showed moderate right-sided hydronephrosis and an echogenic liver may be seen in setting of hepatic parenchymal disease or fatty infiltration. Patient was treated with intravenous fluids, levaquin, morphine, flomax amongst other empiric/therapeutic medications. LFTS are downtrended at the time of discharge and believed to be increased secondary to medications taken at home. At this time the patient is medically stable for discharge. Patient understands and appreciates discharge plan. Patient instructed to follow up with primary care physician and referrals within three to five days from discharge. Furthermore, the patient is instructed to take medications as prescribed and to return to emergency room for evaluation of intractable headache, fever, chills, dizziness, chest pain, shortness of breath, abdominal pain, nausea, vomiting, diarrhea, constipation, and urinary symptoms. This is a brief summary of the patients hospital course. Please see patient chart for full details. Discharge Exam - Additional Findings Additional findings: - Constitutional Appears: In Acute Distress - Head Exam Head Exam: ATRAUMATIC, NORMOCEPHALIC - Eye Exam Eye Exam: EOMI, Normal appearance - ENT Exam ENT Exam: Mucous Membranes Moist, Normal Exam - Neck Exam Neck exam: Positive for: Normal Inspection - Respiratory Exam Respiratory Exam: Clear to Auscultation Bilateral, NORMAL BREATHING PATTERN. absent: Rales, Rhonchi, Wheezes, Stridor - Cardiovascular Exam Cardiovascular Exam: REGULAR RHYTHM, +S1, +S2. absent: Gallop, Rubs, Systolic Murmur - GI/Abdominal Exam GI & Abdominal Exam: Normal Bowel Sounds, Soft, Tenderness. absent: Distended, Firm, Guarding, Rebound - Exam Exam: no suprapubic tenderness - Extremities Exam Extremities exam: Positive for: normal inspection. Negative for: pedal edema - Back Exam Back exam: absent: CVA tenderness (L), CVA tenderness (R) - Neurological Exam Neurological exam: Alert, Oriented x3 - Psychiatric Exam Psychiatric exam: Normal Affect, Normal Mood Discharge Plan - Discharge Medications Prescriptions: Tamsulosin [Flomax] 0.4 mg PO DAILY 14 Days cap RX: traMADol [Ultram] 25 mg PO Q6 PRN #15 tab PRN Reason: Pain, Severe (8-10) - Follow Up Plan Condition: FAIR Disposition: HOME/ ROUTINE Instructions: Kidney Stones (DC), Urinary Tract Infection, Adult (DC), Extracorporeal Shock Wave Lithotripsy (DC), Laser Lithotripsy for Kidney Stones (DC), Kidney Infection (DC), Abdominal Pain (ED) Additional Instructions: Patient Instructions: 1. Take medications as prescribed. You are provided a prescription for Tramadol 25mg orally every 6 hours as needed for pain. Do not operate heavy machinery including driving while taking this medication. 2. Continue adequate oral water intake 6-8 8 fluid oz cups per day 3. Strain urine to confirm passage of stone 4. Do not take Acetomenophen/Tylenol for pain relief as your liver function tests are elevated. 5. Repeat liver function testing in 1 week from discharge 6. Follow up with your primary care physician, Dr. Chuck Downs and urologist, Dr. John Solorzano or within three to five days from discharge. 7. Return to the emergency room for evaluation of intractable headache, fever, chills, dizziness, chest pain, shortness of breath, abdominal pain, nausea, vomiting, diarrhea, constipation, and urinary symptoms. Referrals: John Solorzano MD [Staff Provider] - Eric Sagastume MD [Staff Provider] - <Estefanía Mcmahon - Last Filed: 01/28/18 18:46> Provider - Provider Date of Admission: 01/26/18 18:54 Attending physician: Estefanía Mcmahon MD Hospital Course - Lab Results Lab Results: Micro Results 01/26/18 18:45 Blood Blood Culture - Preliminary NO GROWTH AFTER 24 HOURS 01/26/18 18:30 Blood Blood Culture - Preliminary NO GROWTH AFTER 24 HOURS 01/26/18 14:50 Urine Urine Culture - Final No Growth (<1,000 CFU/ML) Most Recent Lab Values WBC 7.5 10^3/ul (4.5-11.0) D 01/28/18 05:00 RBC 4.14 10^6/uL (3.5-6.1) 01/28/18 05:00 Hgb 11.6 g/dL (12.0-16.0) L 01/28/18 05:00 Hct 35.6 % (36.0-48.0) L 01/28/18 05:00 MCV 86.0 fl (80.0-105.0) 01/28/18 05:00 MCH 28.0 pg (25.0-35.0) 01/28/18 05:00 MCHC 32.6 g/dl (31.0-37.0) 01/28/18 05:00 RDW 13.4 % (11.5-14.5) 01/28/18 05:00 Plt Count 158 10^3/uL (120.0-450.0) 01/28/18 05:00 MPV 11.9 fl (7.0-11.0) H 01/28/18 05:00 Gran % 59.8 % (50.0-68.0) 01/28/18 05:00 Lymph % (Auto) 32.4 % (22.0-35.0) 01/28/18 05:00 Rowan % (Auto) 6.4 % (1.0-6.0) H 01/28/18 05:00 Eos % (Auto) 1.3 % (1.5-5.0) L 01/28/18 05:00 Baso % (Auto) 0.1 % (0.0-3.0) 01/28/18 05:00 Gran # 4.47 (1.4-6.5) 01/28/18 05:00 Lymph # (Auto) 2.4 (1.2-3.4) 01/28/18 05:00 Rowan # (Auto) 0.5 (0.1-0.6) 01/28/18 05:00 Eos # (Auto) 0.1 (0.0-0.7) 01/28/18 05:00 Baso # (Auto) 0.01 K/mm3 (0.0-2.0) 01/28/18 05:00 PT 13.9 SECONDS (9.4-12.5) H 01/28/18 05:00 INR 1.20 01/28/18 05:00 APTT 34.0 Seconds (25.1-36.5) 01/28/18 05:00 Sodium 139 mmol/L (132-148) 01/28/18 05:00 Potassium 4.0 mmol/L (3.6-5.0) 01/28/18 05:00 Chloride 110 mmol/L (98-107) H 01/28/18 05:00 Carbon Dioxide 22 mmol/L (21-33) 01/28/18 05:00 Anion Gap 11 (10-20) 01/28/18 05:00 BUN 11 mg/dL (7-21) 01/28/18 05:00 Creatinine 0.9 mg/dl (0.7-1.2) 01/28/18 05:00 Est GFR ( Amer) > 60 01/28/18 05:00 Est GFR (Non-Af Amer) > 60 01/28/18 05:00 Random Glucose 80 mg/dL (70-110) 01/28/18 05:00 Uric Acid 4.2 mg/dL (2.5-6.2) 01/26/18 14:50 Calcium 8.6 mg/dL (8.4-10.5) 01/28/18 05:00 Phosphorus 3.7 mg/dL (2.5-4.5) 01/27/18 06:00 Magnesium 1.8 mg/dL (1.7-2.2) 01/27/18 06:00 Total Bilirubin 0.8 mg/dL (0.2-1.3) 01/28/18 05:00 AST 72 U/L (14-36) H D 01/28/18 05:00 ALT 193 U/L (7-56) H 01/28/18 05:00 Alkaline Phosphatase 59 U/L (38-126) 01/28/18 05:00 Total Protein 6.3 g/dL (5.8-8.3) 01/28/18 05:00 Albumin 3.4 g/dL (3.0-4.8) 01/28/18 05:00 Globulin 2.9 gm/dL 01/28/18 05:00 Albumin/Globulin Ratio 1.2 (1.1-1.8) 01/28/18 05:00 Amylase 54 U/L (35-125) 01/26/18 14:50 Lipase 27 U/L (23-300) 01/26/18 14:50 Procalcitonin < 0.05 NG/ML (0.19-0.49) L 01/27/18 05:43 Urine Color Dark yellow (YELLOW) 01/26/18 14:50 Urine Appearance Slight-cloudy (CLEAR) 01/26/18 14:50 Urine pH 6.5 (4.7-8.0) 01/26/18 14:50 Ur Specific [place] 1.025 (1.005-1.035) 01/26/18 14:50 Urine Protein 30 mg/dL (<30 mg/dL) H 01/26/18 14:50 Urine Glucose (UA) Negative mg/dL (NEGATIVE) 01/26/18 14:50 Urine Ketones Trace mg/dL (NEGATIVE) H 01/26/18 14:50 Urine Blood Large (NEGATIVE) H 01/26/18 14:50 Urine Nitrate Negative (NEGATIVE) 01/26/18 14:50 Urine Bilirubin Small (NEGATIVE) H 01/26/18 14:50 Urine Urobilinogen >=8.0 E.U./dL (<1 E.U./dL) 01/26/18 14:50 Ur Leukocyte Esterase Moderate Purnima/uL (NEGATIVE) H 01/26/18 14:50 Urine RBC 2 - 5 /hpf (0-2) 01/26/18 14:50 Urine WBC 2 - 5 /hpf (0-6) 01/26/18 14:50 Ur Epithelial Cells 6 - 8 /hpf (0-5) 01/26/18 14:50 Calcium Oxalate Crystal Small /hpf 01/26/18 14:50 Urine Bacteria Small (NEG) 01/26/18 14:50 Urine Opiates Screen Positive (NEGATIVE) H 01/27/18 07:13 Urine Methadone Screen Negative (NEGATIVE) 01/27/18 07:13 Acetaminophen < 10.0 ug/ml (10.0-20.0) L 01/26/18 14:50 Ur Barbiturates Screen Negative (NEGATIVE) 01/27/18 07:13 Ur Phencyclidine Scrn Negative (NEGATIVE) 01/27/18 07:13 Ur Amphetamines Screen Negative (NEGATIVE) 01/27/18 07:13 U Benzodiazepines Scrn Negative (NEGATIVE) 01/27/18 07:13 U Oth Cocaine Metabols Negative (NEGATIVE) 01/27/18 07:13 U Cannabinoids Screen Negative (NEGATIVE) 01/27/18 07:13 Hepatitis A IgM Ab Negative (NEGATIVE) 01/26/18 18:30 Hep Bs Antigen Negative (NEGATIVE) 01/26/18 18:30 Hep B Core IgM Ab Negative (NEGATIVE) 01/26/18 18:30 Hepatitis C Antibody Negative (NEGATIVE) 01/26/18 18:30 HIV 1&2 Ag/Ab, 4th Gen Nonreactive (Nonreactive) 01/26/18 18:30 Attending/Attestation - Attestation I have personally seen and examined this patient.: Yes I have fully participated in the care of the patient.: Yes I have reviewed all pertinent clinical information, including history, physical exam and plan: Yes Notes (Text): 01/28/18 18:43 Medical record note made by the resident after discussion with my direction and input after the patient was personally seen and examined by me. I have reviewed the chart and agree that the record accurately reflects by personal performance of the history, physical exam, data review, and medical decision-making, in the course for the patient. I have also personally directed the plan of care. 32 year old female presenting with RLQ abdominal pain. Abdominal ultrasound shows right-sided hydronephrosis. CT scan shows unilateral, right obstructive uropathy related to distal 3mm calculus.Patient was also found to have elvated transaminase. Patient was seen in consultation with Urology.Abdmonal pain has improved.Renal functions are stable.Urology has recommended conservative management. LFT are improving.Patient has been advised not to take tyelonol and avoid alcohol. Patient will need repeat LFT in one week with PMD. Patient will follow up with PMD and Urology. Management plan was discussed in detail with patient. Education was provided. 01/28/18 18:45
[2018-01-28 14:49] VITALS: BP 118/72; PULSE 75; RESP 18; TEMP 98.5; O2SAT 93
== END 2018-01-28 16:43 | disposition home or self-care (01) ==
LOC: ED 13:56 → ERH 18:54 → 5RNO 21:11
PROVIDERS: ADMIT Internal Medicine; ATTEND Internal Medicine
DX: N20.2 Calculus of kidney with calculus of ureter (principal); N13.6 Pyonephrosis; M06.9 Rheumatoid arthritis, unspecified; Z87.442 Personal history of urinary calculi; Z90.49 Acquired absence of other specified parts of digestive tract; R40.2412 Glasgow coma scale score 13-15, at arrival to emergency department; R74.0 Nonspecific elevation of levels of transaminase and lactic acid dehydrogenase [LDH]
CPT/HCPCS: 36415; 74018; 76700; 80053; 80074; 80324; 80329; 80345; 80346; 80349; 80353; 80358; 80361; 81001; 82150; 83690; 83735; 83970; 83992; 84100; 84145; 84550; 85025; 85610; 85730; 87040; 87086; 87389; 96374; 96375; 96376; 99284; G0378; J1885; J2270; J2405; J7030